=== PATIENT | male | born 1940 | race African-American/Black ===

== ENCOUNTER → 2016-05-31 | Outpatient (CLI) | payer MEDICARE, BC ==
[~2016-05-31] MED LIST: ALBUTEROL17 G1; ALL DAY ALLERGY10 M2 PO; AMOXICILLIN875 MG PO; ASPIRIN PO; B12 HEALTH1000 MCG/1 PO; CARVEDILOL25 MG PO; COREG3.125 MG PO; COZAAR PO; FISH OIL 1,0001 CAP PO; FLOVENT DI50 MCG/DIS IH; FLOVENT HFA12 G2 INH; FOLIC ACID1 MG PO; GLUCOPHAGE500 M1 PO; HYDRALAZINE HCL50 MG PO; LIPITOR20 MG PO; LOPID600 MG PO; MACROBID 100 M100 MG PO; MAGNESIUM400 M1; MULTI VITAMIN1 EACH PO; NISOLDIPINE17 MG PO; PANTOPRAZOLE SO40 MG PO; POTASSIUM CHLO20 ME1 PO; PROTONIX PO; PULMICORT200 MCG/AE INH; SPIRIVA18 MCG INH; SULAR PO; THIAMINE HCL100 MG PO
== END | disposition home or self-care (01) ==
LOC: CECH 12:59
DX: I27.2 Other secondary pulmonary hypertension (principal)
CPT/HCPCS: 93306